=== PATIENT | female | born 1985 | race Caucasian/White ===

== ENCOUNTER → 2017-03-05 | Outpatient (CLI) | payer BC ==
--- NOTE | 2017-03-05 11:03 | DIAGNOSTIC IMAGING REPORT ---
HYSTEROSALPINGOGRAM HISTORY: Infertility. FLUOROSCOPY TIME: 50 seconds. TECHNIQUE: The cervix was cannulated by the clearance representative-direct care counselor and water soluble contrast was instilled into the uterus under fluoroscopic guidance. Multiple spot images were obtained. FINDINGS: Despite several attempts, of the uterine cavity was not cannulated or opacified. Contrast is identified within the vaginal canal. IMPRESSION: Nondiagnostic study as the uterine cavity was not opacified. The above report was generated using voice recognition software. It may contain grammatical, syntax or spelling errors. Electronically signed by: Brown Felipe M.D. 03/05/2017 11:02 AM Dictated Date/Time: 03/05/2017 10:58 AM
== END | disposition home or self-care (01) ==
LOC: C.RAD 10:08
PROVIDERS: ATTEND Obstetrics & Gynecology Obstetrics
DX: N97.9 Female infertility, unspecified (principal)